=== PATIENT | female | born 1995 | race Caucasian/White ===

== ENCOUNTER 2017-06-24 11:07 | Emergency (ER) | payer OTHER ==
[2017-06-24 11:28] VITALS: BP 144/93; BMI 36.8
[2017-06-24] MEDS ORDERED: IBUPROFEN 400 MG TABLET (FP) PO ONE ×2 (12:13→12:18)
[2017-06-24] MEDS ORDERED: DIPHTH,PERTUSS(ACELL),TET 0.5 ML DISP.SYRIN IM ONE (12:13)
--- NOTE | 2017-06-24 12:17 | PDOC ---
History of Present Illness - General Chief Complaint: Abscess Boil Stated Complaint: CYST/ LT THIGH Time Seen by Provider: 06/24/17 12:02 History Source: Patient - History of Present Illness Location: reports: extremities Past History - Past Medical History Allergies/Adverse Reactions: Allergies Allergy/AdvReac Type Severity Reaction Status Date / Time No Known Allergies Allergy Verified 06/24/17 11:28 Home Medications: Ambulatory Orders Clindamycin [Cleocin -] 300 mg PO Q6HPO #28 capsule 06/24/17 Ibuprofen [Motrin -] 600 mg PO QID #28 tablet 06/24/17 COPD: No - Suicide/Smoking/Psychosocial Hx Smoking History: Never smoked Have you smoked in the past 12 months: No Hx Alcohol Use: No Drug/Substance Use Hx: No Substance Use Type: None Review of Systems - Review of Systems Constitutional: Yes: Fever. No: Chills Integumentary: Yes: Other (abscess) *Physical Exam - Vital Signs Last Vital Signs Temp Pulse Resp BP Pulse Ox 99.1 F 107 H 20 144/93 99 06/24/17 11:26 06/24/17 11:26 06/24/17 11:26 06/24/17 11:26 06/24/17 11:26 - Physical Exam General Appearance: Yes: Appropriately Dressed. No: Apparent Distress HEENT: positive: Normal Voice Neck: positive: Supple Respiratory/Chest: negative: Respiratory Distress Extremity: positive: Other (3x2 cm induration w/ overlying erythema to medial aspect of superior L thigh) Integumentary: positive: Dry, Warm Neurologic: positive: Fully Oriented, Alert, Normal Mood/Affect Procedures - Incision and Drainage I&D Site: Left: Other (L thigh) Betadine cleansed: Yes Anesthesia: 1% Lidocaine Volume(ml): 8 Blade Size: 11 Attempts: 1 (copious amount of pus) Iodinated Packin/4 in Complications: none Dressing: Yes (xeroform and 4x4) Medical Decision Making - Medical Decision Making 06/24/17 12:13 22-year-old female, denies any past medical history here with pain and swelling to left thigh x several days. States had a fever for 101 this a.m. Has not taken anything for fever. No history of trauma or bite See exam Abscess/cellulitis to medial L thigh Temp of 99.1 and mildly tachy in ED but non-toxic appearing -pain control -tetanus -I&D -abx -wound check in 2 days 06/24/17 12:47 S/p I&D. Rpt temp 98.2 w/ HR of 88. Pt stable for dc w/ abx and wound check in 2 days. Strict return precautions given *DC/Admit/Observation/Transfer Diagnosis at time of Disposition: Abscess of thigh - Discharge Dispostion Disposition: HOME Condition at time of disposition: Improved - Prescriptions Prescriptions: Clindamycin [Cleocin -] 300 mg PO Q6HPO #28 capsule Ibuprofen [Motrin -] 600 mg PO QID #28 tablet - Referrals Referrals: Daniela Agarwal MD [Primary Care Provider] - - Patient Instructions Printed Discharge Instructions: DI for Incision and Drainage of a Skin Abscess Additional Instructions: Keep wound clean and dry for the next 2 days. Take medications as directed. Return immediately for worsening of symptoms, otherwise return in 2 days for wound check - Post Discharge Activity
[2017-06-24 12:48] VITALS: PULSE 88; TEMP 98.2
== END 2017-06-24 12:48 | disposition home or self-care (01) ==
LOC: JERFT 11:07
PROC: 3E0234Z Introduction of Serum, Toxoid and Vaccine into Muscle, Percutaneous Approach (ICD-10-PCS; principal; 2017-06-24)
PROC: 0J9M0ZZ Drainage of Left Upper Leg Subcutaneous Tissue and Fascia, Open Approach (ICD-10-PCS; 2017-06-24)
DX: L02.416 Cutaneous abscess of left lower limb (principal)
CPT/HCPCS: 90715; 99282-25

== ENCOUNTER 2018-07-25 14:37 | Emergency (ER) | payer OTHER ==
[2018-07-25 14:47] VITALS: BP 139/85; PULSE 77; TEMP 98.5; BMI 39.4
[2018-07-25] MEDS ORDERED: DEXAMETHASONE LIQUID 0.5 MG/5 ML 240 ML BULK BOTTLE PO ONE (15:15)
[2018-07-25] MEDS ORDERED: DEXAMETHASONE SOD PHOSPHATE 10 MG/1 ML VIAL ONE (15:17)
--- NOTE | 2018-07-25 15:43 | PDOC ---
History of Present Illness - General Chief Complaint: Rash Stated Complaint: ALLERGIC REACTION Time Seen by Provider: 07/25/18 15:11 History Source: Patient Exam Limitations: Clinical Condition - History of Present Illness Initial Comments: 07/25/18 15:42 Patient with no significant past medical history present with complaint of red itchy rash to front of neck which is worsening and feeling of throat irritation since yesterday. Patient reported mild throat discomfort with swallow. Denies shortness of breath, chest pain, dizziness or thumb swelling. Patient denies rash anywhere else Timing/Duration: 24 hours Past History - Past Medical History Allergies/Adverse Reactions: Allergies Allergy/AdvReac Type Severity Reaction Status Date / Time No Known Allergies Allergy Verified 07/25/18 14:45 Home Medications: Ambulatory Orders Famotidine [Pepcid] 20 mg PO BID 5 Days #10 tablet 07/25/18 Hydrocortisone 2.5% Topical Cr [Anusol-Hc -] 1 applic TP BID PRN 7 Days #1 tube 07/25/18 Prednisone [Deltasone] 20 mg PO BID 5 Days #10 tablet 07/25/18 COPD: No DVT: No - Suicide/Smoking/Psychosocial Hx Smoking History: Never smoked Have you smoked in the past 12 months: No Information on smoking cessation initiated: No Hx Alcohol Use: No Drug/Substance Use Hx: No Substance Use Type: None Review of Systems - Review of Systems Able to Perform ROS?: Yes Is the patient limited [place]er proficient: No Constitutional: No: Fever, Malaise, Weakness HEENTM: Yes: Symptoms Reported, See HPI, Throat Pain (thoat irritation). No: Eye Pain, Blurred Vision, Tearing, Recent change in vision, Double Vision, Cataracts, Ear Pain, Ocular Prothesis, Ear Discharge, Nose Pain, Nose Congestion , Tinnitus, Nose Bleeding, Hearing Loss, Throat Swelling, Mouth Pain, Dental Problems, Difficulty Swallowing, Mouth Swelling, Other Respiratory: No: Symptoms reported, See HPI, Cough, Orthopnea, Shortness of Breath, SOB with Exertion, SOB at Rest, Stridor, Wheezing, Productive cough, Hemoptysis, Other ABD/GI: No: Nausea, Vomiting Integumentary: Yes: Pruritus (over rash area), Rash (anterior neck). No: Bruising, Pallor All Other Systems: Reviewed and Negative *Physical Exam - Vital Signs Last Vital Signs Temp Pulse Resp BP Pulse Ox 98.5 F 77 18 139/85 100 07/25/18 14:45 07/25/18 14:45 07/25/18 14:45 07/25/18 14:45 07/25/18 14:45 - Physical Exam Comments: 07/25/18 15:45 GENERAL: Well developed, well nourished. Awake and alert. No acute distress. HEENT: Normocephalic, atraumatic. PERRLA, EOMI. No conjunctival pallor. Sclera are non-icteric. Moist mucous membranes. Oropharynx is clear. NECK: Supple. Full ROM. CARDIOVASCULAR: Regular rate and rhythm. No murmurs, rubs, or gallops. Distal pulses are 2+ and symmetric. PULMONARY: No evidence of respiratory distress. Lungs clear to auscultation bilaterally. No wheezing, rales or rhonchi. ABDOMINAL: Soft. Non-tender. Non-distended. No rebound or guarding. No organomegaly. Normoactive bowel sounds. MUSCULOSKELETAL Normal range of motion at all joints. EXTREMITIES: No cyanosis. No clubbing. No edema. No calf tenderness. SKIN: Warm and dry. diffused localized erythematous urticarial rash to anterior neck skin w/o excoriations. NEUROLOGICAL: Alert, awake, appropriate. Gait is normal without ataxia. PSYCHIATRIC: Cooperative. Good eye contact. Appropriate mood General Appearance: Yes: Nourished, Appropriately Dressed. No: Apparent Distress Moderate Sedation - Procedure Monitoring Vital Signs: Procedure Monitoring Vital Signs Temperature 98.5 F 07/25/18 14:45 Pulse Rate 77 07/25/18 14:45 Respiratory Rate 18 07/25/18 14:45 Blood Pressure 139/85 07/25/18 14:45 O2 Sat by Pulse Oximetry (%) 100 07/25/18 14:45 ED Treatment Course - Medications Given in the ED: ED Medications Discontinued Medications Generic Name Dose Route Start Last Admin Trade Name Carmina PRN Reason Stop Dose Admin Dexamethasone 10 mg 07/25/18 15:15 07/25/18 15:22 Decadron Liquid - PO 07/25/18 15:16 10 mg ONCE ONE Administration Diphenhydramine HCl 50 mg 07/25/18 15:15 07/25/18 15:22 Benadryl Injection - IM 07/25/18 15:16 50 mg ONCE ONE Administration Medical Decision Making - Medical Decision Making 07/25/18 15:46 Patient with no significant past medical history present with complaint of red itchy rash to front of neck which is worsening and feeling of throat irritation since yesterday. 07/25/18 15:56 Exam significant for diffuse localized erythematous rash to anterior neck without excoriations. Rapid strep test was negative. Patient symptoms likely ALLERGIC dermatitis. Decadron 10 mg by mouth and Benadryl 50 mg IM given. Patient is stable for discharge on prednisone and Pepcid with topical hydrocortisone cream for ALLERGIC dermatitis with dermatology follow-up as needed. *DC/Admit/Observation/Transfer Diagnosis at time of Disposition: Dermatitis, Urticaria - Discharge Dispostion Disposition: HOME Condition at time of disposition: Stable Decision to Admit order: No - Prescriptions Prescriptions: Famotidine [Pepcid] 20 mg PO BID 5 Days #10 tablet Hydrocortisone 2.5% Topical Cr [Anusol-Hc -] 1 applic TP BID PRN 7 Days #1 tube PRN Reason: rash Prednisone [Deltasone] 20 mg PO BID 5 Days #10 tablet - Referrals Referrals: Daniela Agarwal MD [Primary Care Provider] - Kaleigh Cruz MD [Staff Physician] - - Patient Instructions Printed Discharge Instructions: Urticaria (Alternative Therapy), Hives Additional Instructions: Your strep test was negative. Take medications as prescribed. Follow-up referred dermatology if symptoms are not improved in 4 days. - Post Discharge Activity
== END 2018-07-25 15:59 | disposition home or self-care (01) ==
LOC: JERFT 14:37
PROC: 3E023GC Introduction of Other Therapeutic Substance into Muscle, Percutaneous Approach (ICD-10-PCS; principal; 2018-07-25)
DX: L50.0 Allergic urticaria (principal)
CPT/HCPCS: 87070; 87880; 96372; 99281-25

== ENCOUNTER 2018-08-09 17:01 | Emergency (ER) | payer OTHER ==
[2018-08-09 17:11] VITALS: BP 141/77; BMI 39.4
--- NOTE | 2018-08-09 17:14 | PDOC ---
Rapid Medical Evaluation Chief Complaint: Respiratory Time Seen by Provider: 08/09/18 17:13 Medical Evaluation: Allergies Allergy/AdvReac Type Severity Reaction Status Date / Time No Known Allergies Allergy Verified 08/09/18 17:08 Vital Signs Temp Pulse Resp BP Pulse Ox 102.9 F H 135 H 26 H 141/77 98 08/09/18 17:09 08/09/18 17:09 08/09/18 17:09 08/09/18 17:08/09/18 17:08/09/18 17:13 I have performed a brief in-person evaluation of the patient. The patient presents with a chief complaint of: flu like symptoms since Thursday. States fever, bodyache, vomiting and coughing Pertinent physical exam findings. NAD even and unlabored breathing coughing in triage heart [id number] I have ordered the following. flu, strep, antipyretic/analgesia The patient will proceed to the ED for further evaluation.
[2018-08-09] MEDS ORDERED: IBUPROFEN 600 MG TABLET (FP) PO ONE ×2 (17:15→17:16)
[2018-08-09] MEDS ORDERED: ACETAMINOPHEN 325 MG TABLET (FP) PO ONE (18:17)
[2018-08-09] MEDS ORDERED: ONDANSETRON *ODT* 4 MG TABLET SL ONE (18:17)
[2018-08-09] MEDS ORDERED: DEXAMETHASONE LIQUID 0.5 MG/5 ML 240 ML BULK BOTTLE PO ONE (18:17)
--- NOTE | 2018-08-09 18:18 | PDOC ---
History of Present Illness - General Chief Complaint: Respiratory Stated Complaint: PHENUMONIA Time Seen by Provider: 08/09/18 17:13 History Source: Patient Exam Limitations: No Limitations Past History - Travel Traveled outside of the country in the last 30 days: No Close contact w/someone who was outside of country & ill: No - Past Medical History Allergies/Adverse Reactions: Allergies Allergy/AdvReac Type Severity Reaction Status Date / Time No Known Allergies Allergy Verified 08/09/18 17:08 Home Medications: Ambulatory Orders NK [No Known Home Medication] 08/09/18 COPD: No DVT: No - Suicide/Smoking/Psychosocial Hx Smoking History: Never smoked Have you smoked in the past 12 months: No Hx Alcohol Use: No Drug/Substance Use Hx: No Substance Use Type: None Review of Systems - Review of Systems Able to Perform ROS?: Yes Comments:: 08/09/18 18:16 CONSTITUTIONAL: Present: Fever, chills, body aches Absent: diaphoresis, generalized weakness, malaise, loss of appetite HEENT: Present: rhinorrhea, nasal congestion, throat pain. Absent: difficulty swallowing, mouth swelling, ear pain, eye pain, visual Changes CARDIOVASCULAR: Absent: chest pain, loss of consciousness, palpitations, irregular heart rate, peripheral edema RESPIRATORY: Present: Cough Absent: shortness of breath, dyspnea with exertion, orthopnea, wheezing, stridor, hemoptysis GASTROINTESTINAL: Absent: abdominal pain, abdominal distension, nausea, vomiting, diarrhea, constipation, melena, hematochezia SKIN: Absent: rash, itching, pallor NEUROLOGIC: Present: headache Absent: focal weakness or paresthesias, dizziness, unsteady gait, seizure, mental status changes, bladder or bowel incontinence Is the patient limited [place] proficient: No *Physical Exam - Vital Signs Last Vital Signs Temp Pulse Resp BP Pulse Ox 102.9 F H 135 H 26 H 141/77 98 08/09/18 17:09 08/09/18 17:09 08/09/18 17:09 08/09/18 17:09 08/09/18 17:09 - Physical Exam Comments: 08/09/18 18:16 GENERAL: Well developed, well nourished. Awake and alert. No acute distress. HEENT: Normocephalic, atraumatic. PERRLA, EOMI. No conjunctival pallor. Sclera are non- icteric. Moist mucous membranes. Oropharynx is clear. NECK: Supple. Full ROM. No JVD. Carotid pulses 2+ and symmetric, without bruits. No thyromegaly. No lymphadenopathy. CARDIOVASCULAR: Regular rate and rhythm. No murmurs, rubs, or gallops. Distal pulses are 2+ and symmetric. PULMONARY: No evidence of respiratory distress. Lungs clear to auscultation bilaterally. No wheezing, rales or rhonchi. ABDOMINAL: Soft. Non-tender. Non-distended. No rebound or guarding. No organomegaly. Normoactive bowel sounds. MUSCULOSKELETAL Normal range of motion at all joints. No bony deformities or tenderness. No CVA tenderness. EXTREMITIES: No cyanosis. No clubbing. No edema. No calf tenderness. SKIN: Warm and dry. Normal capillary refill. No rashes. No jaundice. NEUROLOGICAL: Alert, awake, appropriate. Cranial nerves 2-12 intact. No deficits to light touch and temperature in face, upper extremities and lower extremities. No motor deficits in the in face, upper extremities and lower extremities. Normoreflexic in the upper and lower extremities. Normal speech. Toes are down- going bilaterally. Gait is normal without ataxia. PSYCHIATRIC: Cooperative. Good eye contact. Appropriate mood and affect. Moderate Sedation - Procedure Monitoring Vital Signs: Procedure Monitoring Vital Signs Temperature 102.9 F H 08/09/18 17:09 Pulse Rate 135 H 08/09/18 17:09 Respiratory Rate 26 H 08/09/18 17:09 Blood Pressure 141/77 08/09/18 17:09 O2 Sat by Pulse Oximetry (%) 98 08/09/18 17:09 ED Treatment Course - Medications Given in the ED: ED Medications Discontinued Medications Generic Name Dose Route Start Last Admin Trade Name Freq PRN Reason Stop Dose Admin Ibuprofen 600 mg 08/09/18 17:15 08/09/18 17:20 Motrin - PO 08/09/18 17:16 600 mg ONCE ONE Administration *DC/Admit/Observation/Transfer Diagnosis at time of Disposition: Influenza A - Discharge Dispostion Disposition: HOME Condition at time of disposition: Stable Decision to Admit order: No - Referrals Referrals: Daniela Agarwal MD [Primary Care Provider] - - Patient Instructions Printed Discharge Instructions: DI for Influenza -- Adult Additional Instructions: You have the flu. This is a virus. It will get better on it's own in 7-10 days Your Strep test was negative Your Chest x-ray was normal Drink plenty of fluids! Take Motrin 800mg every 8 hours for fever and aches Take Tylenol 650mg every 6 hours for fever and aches Use the albuterol inhaler every 4 hours as needed for cough Take the zofran every 8 hours as needed for nausea Get plenty of rest Follow up with your primary care doctor this week Return to the ED for difficulty breathing, shortness of breath, weakness, or if you have any changes in your symptoms - Post Discharge Activity Forms/Work/School Notes: Back to Work
[2018-08-09] MEDS ORDERED: ALBUTEROL SO4 2.5/IPRATROPIUM 0.5 INH SOL 3 ML VIAL.NEB. NEB ONE (18:27)
[2018-08-09] MEDS ORDERED: ACETAMINOPHEN 325 MG TABLET (FP) ONE (18:27)
[2018-08-09] MEDS ORDERED: DEXAMETHASONE SOD PHOSPHATE 10 MG/1 ML VIAL ONE (18:27)
[2018-08-09] MEDS ORDERED: ONDANSETRON *ODT* 4 MG TABLET ONE (18:27)
[2018-08-09 19:35] VITALS: PULSE 110; TEMP 102.1
[2018-08-09] MEDS ORDERED: ALBUTEROL SO4 2.5/IPRATROPIUM 0.5 INH SOL 3 ML VIAL.NEB. NEB SCH (20:00)
== END 2018-08-09 19:42 | disposition home or self-care (01) ==
LOC: JERFT 17:01
DX: J09.X2 Influenza due to identified novel influenza A virus with other respiratory manifestations (principal)
CPT/HCPCS: 71046-TC-FY; 87070; 87077; 87804; 87880; 99281-25; Q0162

== ENCOUNTER 2019-06-27 20:14 | Emergency (ER) | payer OTHER ==
[2019-06-27 20:33] VITALS: TEMP 98.3; BMI 34.3
--- NOTE | 2019-06-27 21:43 | PDOC ---
History of Present Illness - General Chief Complaint: Vomiting/Diarrhea Stated Complaint: VOMITING/DIARRHEA Time Seen by Provider: 06/27/19 21:38 History Source: Patient - History of Present Illness Initial Comments: 06/27/19 22:06 24 year old female with diarrhea for the last three days now with nausea, vomiting , diarrhea, tmax 101 5pm. 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 denies abdominal pain. patient reports rectal pain from frequent diarrhea. patient reports 3 episodes of diarrhea. PMHX: cold urticaria 06/27/19 22:08 Past History - Past Medical History Allergies/Adverse Reactions: Allergies Allergy/AdvReac Type Severity Reaction Status Date / Time azithromycin [From Zithromax] Allergy Verified 06/27/19 20:29 Home Medications: Ambulatory Orders NK [No Known Home Medication] 06/27/19 COPD: No DVT: No - Psycho Social/Smoking Cessation Hx Smoking History: Never smoked Have you smoked in the past 12 months: No Hx Alcohol Use: No Drug/Substance Use Hx: No Substance Use Type: None Review of Systems - Review of Systems Able to Perform ROS?: Yes Is the patient limited [place] proficient: No Constitutional: Yes: Fever ABD/GI: Yes: Diarrhea, Nausea, Vomiting, Abdominal cramping *Physical Exam - Vital Signs Last Vital Signs Temp Pulse Resp BP Pulse Ox 98.3 F 75 16 136/80 99 06/27/19 20:31 06/27/19 20:31 06/27/19 20:31 06/27/19 20:31 06/27/19 20:31 - Physical Exam General Appearance: Yes: Appropriately Dressed Respiratory/Chest: positive: Lungs Clear, Normal Breath Sounds Cardiovascular: positive: Regular Rhythm, Regular Rate Gastrointestinal/Abdominal: positive: Normal Bowel Sounds, Soft. negative: Tender Extremity: positive: Normal Capillary Refill Integumentary: positive: Normal Color, Dry, Warm Neurologic: positive: Fully Oriented, Alert ED Treatment Course - LABORATORY CBC & Chemistry Diagram: 06/27/19 22:20 06/27/19 22:20 ED Progress Note - Progress Note Progress Note: 06/28/19 03:40 A: gastroenteritis P: IVF zofran Po challenge Medical Decision Making - Medical Decision Making 06/27/19 23:52 repeat temp 98.7 oral. tolerated PO ater and cracker. patient is feeling better. will d/c home Discharge - Discharge Information Problems reviewed: Yes Clinical Impression/Diagnosis: Gastroenteritis Disposition: HOME - Follow up/Referral Referrals: Daniela Agarwal MD [Primary Care Provider] - - Patient Discharge Instructions Patient Printed Discharge Instructions: Viral Gastroenteritis Additional Instructions: Drink plenty of fluids start a BRAT ( bananas, rice apples toast) follow up with your doctor return to the ER if symptoms worsen - Post Discharge Activity Work/Back to School Note: Back to Work
[2019-06-27] MEDS ORDERED: SODIUM CHLORIDE 1,000 ML IV STA (22:09)
[2019-06-27] MEDS ORDERED: ONDANSETRON 4 MG/2 ML VIAL IVPUSH ONE (22:09)
[2019-06-27 22:20] LABS: HYALINE CASTS 4 /lpf (0-8); URINE APPEARANCE CLOUDY; URINE BACTERIA 115.3 /hpf (NEGATIVE); URINE BILIRUBIN NEGATIVE (NEGATIVE); URINE COLOR YELLOW; URINE GLUCOSE (UA) NEGATIVE (NEGATIVE); URINE KETONE NEGATIVE (NEGATIVE); URINE LEUK ESTERASE TRACE (NEGATIVE); URINE NITRITE NEGATIVE (NEGATIVE); URINE PROTEIN NEGATIVE (NEGATIVE); URINE RBC 2 /hpf (0-4); URINE WBC 8 /hpf (0-5)
[2019-06-27] MEDS ORDERED: ONDANSETRON 4 MG/2 ML VIAL ONE (22:21)
[2019-06-27 22:31] LABS: BASO % 1.2 % (0-2.0); EOS % 1.4 % (0-4.5); HEMATOCRIT 36.3 % (32.4-45.2); HEMOGLOBIN 11.4 GM/dL (10.7-15.3); MCH 22.5 pg (25.7-33.7); MCHC 31.3 g/dl (32.0-36.0); MEAN CELL VOLUME 71.9 fl (80-96); MEAN PLT VOLUME 8.9 fl (7.5-11.1); MONO % 6.5 % (3.8-10.2); NEUT % 62.9 % (42.8-82.8); PLATELET COUNT 320 K/MM3 (134-434); RBC 5.05 M/mm3 (3.60-5.2); RDW 16.3 % (11.6-15.6); WHITE BLOOD COUNT 8.6 K/mm3 (4.0-10.0)
[2019-06-27 22:59] LABS: ALBUMIN 3.4 g/dl (3.4-5.0); BILIRUBIN,TOTAL 0.3 mg/dL (0.2-1); BLOOD UREA NITROGEN 7.8 mg/dL (7-18); CALCIUM 8.7 mg/dL (8.5-10.1); CREATININE 0.6 mg/dL (0.55-1.3); POTASSIUM 4.3 mmol/L (3.5-5.1); TOT PROT 6.9 g/dl (6.4-8.2)
[2019-06-28 00:01] VITALS: BP 122/65; PULSE 84
== END 2019-06-28 00:02 | disposition home or self-care (01) ==
LOC: JER 20:14
PROC: 3E033GC Introduction of Other Therapeutic Substance into Peripheral Vein, Percutaneous Approach (ICD-10-PCS; principal; 2019-06-27)
DX: K52.9 Noninfective gastroenteritis and colitis, unspecified (principal)
CPT/HCPCS: 36415; 80053; 81003; 83690; 84703; 85025; 99282-25; J7030

== ENCOUNTER 2020-08-22 20:32 | Emergency (ER) | payer OTHER ==
[2020-08-22 20:56] VITALS: BP 140/84; PULSE 86; TEMP 97.9; BMI 44.6
== END 2020-08-22 21:40 | disposition home or self-care (01) ==
LOC: JER 20:32 → JERFT 20:32 → JER 21:40
DX: R07.0 Pain in throat (principal)
CPT/HCPCS: 87880; 99283-25

== ENCOUNTER 2020-09-08 16:14 | Emergency (ER) | payer OTHER ==
[2020-09-08 16:40] VITALS: TEMP 99.9; BMI 44.9
[2020-09-08] MEDS ORDERED: SODIUM CHLORIDE 500 ML IV STA (17:33)
[2020-09-08] MEDS ORDERED: KETOROLAC TROMETHAMINE 15 MG/ML VIAL IVPUSH ONE ×2 (17:33→23:39)
[2020-09-08] MEDS ORDERED: KETOROLAC TROMETHAMINE 15 MG/ML VIAL ONE ×2 (18:09→23:43)
[2020-09-08 19:15] LABS: BASO % 1.5 % (0-2.0); EOS % 0.4 % (0-4.5); HEMATOCRIT 38.4 % (32.4-45.2); HEMOGLOBIN 12.4 GM/dL (10.7-15.3); LYMPH % 15.6 % (8-40); MCH 24.2 pg (25.7-33.7); MCHC 32.4 g/dl (32.0-36.0); MEAN CELL VOLUME 74.7 fl (80-96); MEAN PLT VOLUME 8.9 fl (7.5-11.1); MONO % 3.5 % (3.8-10.2); PH,URINE 6.5 (5.0-8.0); PLATELET COUNT 365 K/MM3 (134-434); RBC 5.14 M/mm3 (3.60-5.2); RDW 15.9 % (11.6-15.6); URINE APPEARANCE CLEAR; URINE BILIRUBIN NEGATIVE (NEGATIVE); URINE COLOR YELLOW; URINE GLUCOSE (UA) NEGATIVE (NEGATIVE); URINE KETONE NEGATIVE (NEGATIVE); URINE LEUK ESTERASE NEGATIVE (NEGATIVE); URINE NITRITE NEGATIVE (NEGATIVE); URINE PROTEIN NEGATIVE (NEGATIVE); URINE UROBILINOGEN 0.2 mg/dL (0.2-1.0); WHITE BLOOD COUNT 9.9 K/mm3 (4.0-10.0)
[2020-09-08 19:31] LABS: CHLORIDE 102 mmol/L (98-107); POTASSIUM 4.8 mmol/L (3.5-5.1); SODIUM 135 mmol/L (136-145)
[2020-09-08 19:35] LABS: ALBUMIN 3.3 g/dl (3.4-5.0); ANION GAP 2 MMOL/L (8-16); CO2 31 mmol/L (21-32); GLUCOSE,RANDOM 98 mg/dL (74-106); LIPASE 126 U/L (73-393)
[2020-09-08 19:38] LABS: CREATININE 0.6 mg/dL (0.55-1.3); SGOT/AST 37 U/L (15-37); SGPT/ALT 14 U/L (13-61)
[2020-09-08 19:40] LABS: BILIRUBIN,TOTAL 0.6 mg/dL (0.2-1); TOT PROT 7.9 g/dl (6.4-8.2)
[2020-09-08 19:41] LABS: ALK PHOS 107 U/L (45-117)
[2020-09-08 20:57] LABS: ANISOCYTOSIS 0; MACROCYTOSIS 0; PLATELET ESTIMATE NORMAL
[2020-09-09 00:11] VITALS: BP 144/85; PULSE 95
== END 2020-09-09 00:11 | disposition home or self-care (01) ==
LOC: JER 16:14
PROC: 3E033NZ Introduction of Analgesics, Hypnotics, Sedatives into Peripheral Vein, Percutaneous Approach (ICD-10-PCS; principal; 2020-09-08)
PROC: 3E0337Z Introduction of Electrolytic and Water Balance Substance into Peripheral Vein, Percutaneous Approach (ICD-10-PCS; 2020-09-08)
DX: J18.9 Pneumonia, unspecified organism (principal)
CPT/HCPCS: 36415; 71045-TC-FY; 71275-TC; 76700-TC; 80053; 81003; 82550; 83690; 84484; 84703; 85025; 85379; 87086; 93005; 93010; 99285-25; Q9967

== ENCOUNTER 2020-10-15 17:21 | Emergency (ER) | payer OTHER ==
[2020-10-15 17:38] VITALS: BP 133/91; PULSE 99; TEMP 98.2; BMI 42.9
[2020-10-15] MEDS ORDERED: DEXAMETHASONE LIQUID 0.5 MG/5 ML PO ONE (18:05)
[2020-10-15] MEDS ORDERED: IBUPROFEN 600 MG TABLET (FP) PO ONE ×2 (18:05→18:10)
[2020-10-15] MEDS ORDERED: DEXAMETHASONE SOD PHOSPHATE 10 MG/1 ML VIAL ONE (18:10)
== END 2020-10-15 18:18 | disposition home or self-care (01) ==
LOC: JERFT 17:21 → JER 17:21
DX: J02.9 Acute pharyngitis, unspecified (principal)
CPT/HCPCS: 87880; 99283-25; C9803; U0003; U0005

== ENCOUNTER 2021-03-01 03:08 | Emergency (ER) | payer OTHER ==
[2021-03-01 03:25] VITALS: BMI 46.9
[2021-03-01] MEDS ORDERED: MAG HYDROX/AL HYDROX/SIMETH 30 ML UNIT-DOSE CUP PO ONE (04:49)
[2021-03-01] MEDS ORDERED: FAMOTIDINE 20 MG/50 ML IVPB 20 MG/50 ML MG IVPB ONE ×2 (04:57→05:01)
[2021-03-01] MEDS ORDERED: ACETAMINOPHEN 1000 MG/100 ML VIAL (NON FORMULARY) IVPB ONE (04:57)
[2021-03-01] MEDS ORDERED: ACETAMINOPHEN INJECTION 100 ML IVPB ONE (05:00)
[2021-03-01] MEDS ORDERED: MAG HYDROX/AL HYDROX/SIMETH 30 ML UNIT-DOSE CUP ONE (05:01)
[2021-03-01 05:25] LABS: BASO % 0.5 % (0-2.0); EOS % 1.5 % (0-4.5); HEMOGLOBIN 11.7 GM/dL (10.7-15.3); MCH 24.4 pg (25.7-33.7); MCHC 32.4 g/dl (32.0-36.0); MEAN CELL VOLUME 75.3 fl (80-96); MEAN PLT VOLUME 8.8 fl (7.5-11.1); MONO % 6.9 % (3.8-10.2); NEUT % 64.1 % (42.8-82.8); PLATELET COUNT 268 10^3/uL (134-434); RBC 4.79 M/mm3 (3.60-5.2); WHITE BLOOD COUNT 8.2 K/mm3 (4.0-10.0)
[2021-03-01 05:45] LABS: CHLORIDE 104 mmol/L (98-107); SODIUM 137 mmol/L (136-145)
[2021-03-01 05:47] LABS: CALCIUM 8.3 mg/dL (8.5-10.1)
[2021-03-01 05:48] LABS: ALBUMIN 3.2 g/dl (3.4-5.0); ANION GAP 7 MMOL/L (8-16); BLOOD UREA NITROGEN 6.1 mg/dL (7-18); CO2 27 mmol/L (21-32); GLUCOSE,RANDOM 96 mg/dL (74-106)
[2021-03-01 05:51] LABS: CREATININE 0.6 mg/dL (0.55-1.3); SGPT/ALT 15 U/L (13-61)
[2021-03-01 05:53] LABS: BILIRUBIN,TOTAL 0.3 mg/dL (0.2-1); TOT PROT 6.9 g/dl (6.4-8.2)
[2021-03-01 05:54] LABS: ALK PHOS 104 U/L (45-117)
[2021-03-01 06:20] LABS: SGOT/AST < 3 U/L (15-37)
[2021-03-01 06:51] VITALS: BP 113/80; PULSE 82; TEMP 98.1
== END 2021-03-01 06:57 | disposition home or self-care (01) ==
LOC: JER 03:08
PROC: 3E0333Z Introduction of Anti-inflammatory into Peripheral Vein, Percutaneous Approach (ICD-10-PCS; principal; 2021-03-01)
PROC: 3E033GC Introduction of Other Therapeutic Substance into Peripheral Vein, Percutaneous Approach (ICD-10-PCS; 2021-03-01)
DX: R07.9 Chest pain, unspecified (principal)
CPT/HCPCS: 36415; 71046-TC-FY; 80053; 82550; 84484; 84703; 85025; 93005; 93010; 99285-25; C9803; J0131; U0003; U0005

== ENCOUNTER 2021-09-07 11:41 | Emergency (ER) | payer OTHER ==
[2021-09-07 12:02] VITALS: BP 127/73; PULSE 99; TEMP 98.5; BMI 42.9
[2021-09-08 13:07] LABS: SARS-CoV-2 NAA Not Detected (Not Detected)
== END 2021-09-07 13:20 | disposition home or self-care (01) ==
LOC: JER 11:41
DX: J03.90 Acute tonsillitis, unspecified (principal)
CPT/HCPCS: 87651; 99283-25; C9803; U0003; U0005

== ENCOUNTER 2022-04-09 16:00 | Emergency (ER) | payer OTHER ==
[2022-04-09 16:20] VITALS: BP 134/78; PULSE 89; RESP 18; TEMP 98.4; BMI 45.4
[2022-04-09] MEDS ORDERED: KETOROLAC TROMETHAMINE 30 MG/1 ML VIAL IM ONE (17:26)
[2022-04-09] MEDS ORDERED: KETOROLAC TROMETHAMINE 30 MG/1 ML VIAL ONE (18:11)
== END 2022-04-09 19:33 | disposition home or self-care (01) ==
LOC: JER 16:00
PROC: 3E0233Z Introduction of Anti-inflammatory into Muscle, Percutaneous Approach (ICD-10-PCS; principal; 2022-04-09)
DX: R11.2 Nausea with vomiting, unspecified (principal); R19.7 Diarrhea, unspecified; R51.9 Headache, unspecified
CPT/HCPCS: 0241U-QW; 99284-25

== ENCOUNTER 2022-08-20 16:04 | Emergency (ER) | payer OTHER ==
[2022-08-20 16:07] VITALS: BP 135/86; PULSE 75; RESP 18; TEMP 99.2; BMI 44.6
[2022-08-20] MEDS ORDERED: IBUPROFEN 600 MG TABLET (FP) PO ONE ×2 (16:49→16:55)
== END 2022-08-20 18:49 | disposition home or self-care (01) ==
LOC: JERFT 16:04
DX: U07.1 COVID-19 (principal); R51.9 Headache, unspecified; R05.1 Acute cough; R09.81 Nasal congestion
CPT/HCPCS: 0241U-QW; 71046-TC-FY; 87651; 99284-25

== ENCOUNTER 2023-09-22 16:52 | Emergency (ER) | payer OTHER ==
[2023-09-22 17:23] VITALS: BP 124/76; PULSE 78; RESP 18; TEMP 97.5; BMI 51.2
== END 2023-09-22 18:36 | disposition home or self-care (01) ==
LOC: JERFT 16:52
DX: J02.0 Streptococcal pharyngitis (principal); R13.10 Dysphagia, unspecified; R50.9 Fever, unspecified
CPT/HCPCS: 99283-25